=== PATIENT | male | born 1930 | race Caucasian/White ===

== ENCOUNTER 2016-10-04 08:12 | Inpatient (IN) | payer MEDICARE ==
[~2016-10-04] VITALS: Ht 177.8 cm; Wt 113.6 kg
[2016-10-04] MEDS ORDERED: WARF-20 PO (09:23)
[2016-10-04] MEDS ORDERED: WARF-58 PO (09:23)
[2016-10-04] MEDS ORDERED: CARV25TA PO (09:23)
[2016-10-04] MEDS ORDERED: GLIM4TAB PO (09:23)
[2016-10-04] MEDS ORDERED: NOVO7030P2 SQ (09:23)
[2016-10-04] MEDS ORDERED: TERA10CA3 PO (09:23)
[2016-10-04] MEDS ORDERED: K-TA10TA PO (09:23)
[2016-10-04] MEDS ORDERED: PRAV80TA2 PO (09:23)
[2016-10-04] MEDS ORDERED: LISI40TA PO (09:23)
[2016-10-04] MEDS ORDERED: AMLO10TA2 PO (09:23)
[2016-10-20] MEDS ORDERED: SODIUM CHLORID 0.9% 500 ML IV PRN (08:30)
[2016-10-20] MEDS ORDERED: ROPIVACAINE PERI-ARTICULAR INJECTION. P-ARTICULR SCH ×5 (08:30)
[2016-10-20] MEDS ORDERED: POVIDONE IODINE 5% (ANTISEPSIS KIT) 4 APPLICATIONS EACH NARE PRN (08:30)
[2016-10-20] MEDS ORDERED: TRANEXAMIC ACID INJ 1,125 MG in SODIUM CHLORIDE 0.9% INJ 100 ML IV SCH ×4 (08:30)
[2016-10-20] MEDS ORDERED: METOPROLOL TARTRATE 25 MG TAB PO PRN (08:30)
[2016-10-20] MEDS ORDERED: ceFAZolin 1,000 MG/NS 100 ML IV SCH ×2 (08:30)
[2016-10-20] MEDS ORDERED: LACTATED RINGER'S 1000 ML IV PRN (08:30)
[2016-10-20] MEDS ORDERED: CHLORHEXIDINE GLUCONATE 2 % 1 PACK (2 CLOTHS) TOPICAL PRN (08:30)
[2016-10-20] MEDS ORDERED: INSULIN HUMAN REGULAR 1,000 UNITS/10 ML VIAL SQ PRN (08:30)
[2016-10-20] MEDS ORDERED: ceFAZolin 2 GM PREMIX 50 ML IV SCH (08:30)
[2016-10-20] MEDS ORDERED: VANCOMYCIN 1000 MG/NS 250 ML (for <70 kg) IV SCH ×2 (08:30)
[2016-10-20] MEDS ORDERED: POVIDONE IODINE 7.5% SCRUB 118 ML BOTTLE TOPICAL SCH (08:30)
[2016-10-20 08:31] LABS: APTT (PATIENT) 28.2 SEC (24.3-30.1); INTERNATIONAL NORMALIZED RATIO 1.1 RATIO; PROTHROMBIN TIME - PATIENT 11.8 SEC (9.8-11.6)
[2016-10-20] MEDS ORDERED: ENOX40P SQ (08:48)
[2016-10-20 08:54] VITALS: BP 178/88; PULSE 57; RESP 18; TEMP 97.3; O2SAT 99
[2016-10-20 09:09] LABS: AUTOMATED NEUTROPHIL # 2.9 TH/MM3 (1.8-7.7); BASOPHIL % 0.7 % (0.0-2.0); EOSINOPHIL # 0.1 TH/MM3 (0-0.4); EOSINOPHIL % 1.6 % (0.0-4.0); HEMATOCRIT 47.7 % (39.0-51.0); LYMPH % 21.2 % (9.0-44.0); LYMPHOCYTE # 0.9 TH/MM3 (1.0-4.8); MEAN CELL VOLUME 96.3 FL (80.0-100.0); MEAN CORPUSCULAR HEMOGLOBIN 32.4 PG (27.0-34.0); MEAN CORPUSCULAR HGB CONC 33.6 % (32.0-36.0); NEUT % 66.5 % (16.0-70.0); PLATELET COUNT 91 TH/MM3 (150-450); RED BLOOD COUNT 4.96 MIL/MM3 (4.50-5.90); WHITE BLOOD COUNT 4.4 TH/MM3 (4.0-11.0)
[2016-10-20 09:12] LABS: HEMO FLAGS AUTO DIFF
[2016-10-20 09:52] LABS: PLATELET ESTIMATE SMEAR LOW (NORMAL); PLATELET MORPHOLOGY NORMAL (NORMAL); SCAN/DIFF AUTO DIFF CONFIRMED
[2016-10-20] MEDS ORDERED: ACETAMINOPHEN 1000 MG/100 ML VIAL IV ONE (10:55)
[2016-10-20] MEDS ORDERED: PROPOFOL 200 MG/20 ML AMP IV ONE (12:00)
[2016-10-20] MEDS ORDERED: ONDANSETRON HCL 4 MG/2 ML VIAL IV PUSH ONE (12:00)
[2016-10-20] MEDS ORDERED: LACTATED RINGER'S 1000 ML INJ 1,000 ML IV ONE (12:00)
[2016-10-20] MEDS ORDERED: NEOSTIGMINE 3 MG/3 ML SYR IV ONE (12:00)
[2016-10-20] MEDS ORDERED: ePHEDrine/NS 25 MG/5 ML SYR IV ONE (12:00)
[2016-10-20] MEDS ORDERED: GENTAMICIN SULFATE 80 MG/2 ML VIAL IRRIGATION ONE (12:02)
[2016-10-20] MEDS ORDERED: DEXTROSE 50% IN WATER 50 ML VIAL(D50) IV PUSH PRN (14:15)
[2016-10-20] MEDS ORDERED: ONDANSETRON HCL 4 MG/2 ML VIAL IVP PRN (14:15)
[2016-10-20] MEDS ORDERED: TRANEXAMIC ACID INJ 0 MG in SODIUM CHLORIDE 0.9% INJ 100 ML IV SCH (14:15)
[2016-10-20] MEDS ORDERED: NALOXONE HCL 0.4 MG/ML AMP IV PRN (14:15)
[2016-10-20] MEDS ORDERED: TEMAZEPAM 15 MG CAP PO PRN (14:15)
[2016-10-20] MEDS ORDERED: MORPHINE SULFATE 30 MG/30 ML PCA IV SCH (14:15)
[2016-10-20] MEDS ORDERED: GLUCAGON 1 MG/ML VIAL OTHER PRN (14:15)
[2016-10-20] MEDS ORDERED: SODIUM CHLORIDE 0.9% FLUSH 5 ML FLUSH IVF PRN (14:15)
[2016-10-20] MEDS ORDERED: ACETAMINOPHEN/HYDROcodone 325 MG/5 MG TAB PO PRN (14:15)
[2016-10-20] MEDS ORDERED: diphenhydrAMINE HCL 50 MG/ML VIAL IV PRN (14:15)
[2016-10-20] MEDS ORDERED: Post-op Orders (for Pharmacy) MISC XX ONE (14:15)
[2016-10-20] MEDS ORDERED: HYDR-3516 PO (14:26)
--- NOTE | 2016-10-20 14:28 | HHI.FF ---
Face to Face Verification Diagnosis: (1) S/P total hip arthroplasty Physical Therapy Gait training Hip: Total hip, Protocol: Left, Posterior hip precautions Left LE Weight Bearing: WB as tolerated Nursing Nursing: Karen teaching, Dressing changes Dressing Changes: Coverderm/Primapore I have seen patient Sanjay Pineda on 10/20/16. My clinical findings support the need for the requested home health care services because: Deconditioned w/ increased weakness Limited ability to care for self High risk of falls I certify that my clinical findings support that this patient is homebound because: Post-op weakness Unable to use public transportation Larry Goncalves MD October 20, 2016 14:28
[2016-10-20] MEDS ORDERED: MISC-163 (14:29)
[2016-10-20] MEDS ORDERED: WALKER WHEELS/F1 MIS (14:29)
[2016-10-20] MEDS ORDERED: DO NOT ADM ANY ANTICOAGULANT DRUGS PRN (14:40)
[2016-10-20] MEDS ORDERED: fentaNYL CITRATE 250 MCG/5 ML AMP ONE (14:43)
[2016-10-20] MEDS: SODIUM CHLOR 0.9% 1000 ML INJ 1,000 ML IV SCH ×2 (15:00→21:12)
--- NOTE | 2016-10-20 15:51 | RADRPT ---
EXAM DATE/TIME: 10/20/2016 14:50 [facility] COMPARISON: CHEST PA & LAT, October 04, 2016, 9:27. INDICATIONS : Status post op left total arthroplasty. MEDICAL HISTORY : None. SURGICAL HISTORY : None. ENCOUNTER: Subsequent ACUITY: 1 day PAIN SCORE: Non-responsive. LOCATION: Left Hip FINDINGS: The patient is post left hip arthroplasty. Orthopedic hardware is in excellent position. There is no evidence of complication. CONCLUSION: 1. Orthopedic hardware in excellent position. Néstor Romero MD on October 20, 2016 at 15:49 Board Certified Radiologist. This report was verified electronically.
[2016-10-20] MEDS: INSULIN NovoLIN REGULAR SUPPLEMENTAL SCALE SQ SCH ×2 (16:00→21:12)
[2016-10-20] MEDS ORDERED: ACETAMINOPHEN 1000 MG/100 ML VIAL IV SCH (16:00)
[2016-10-20] MEDS ORDERED: WARFARIN SOD 5 MG TAB PO SCH (16:00)
[2016-10-20 16:40] VITALS: BP 152/68; PULSE 55; RESP 17; TEMP 97.6; O2SAT 93
[2016-10-20] MEDS: ceFAZolin 2 GM PREMIX 50 ML IV SCH ×2 (17:36→23:48)
--- NOTE | 2016-10-20 18:07 | PD.CONS ---
HPI Service [facility] Hospitalists Consult Requested By Primary Care Physician Stefano Parrish MD Diagnoses: History of Present Illness Pt is 86 yo with hx cad, cva, dm ,ckd 4 admitted for elective left noe. Pt seen post operatively in room and he looks great . Sitting in chair eating dinner. present. no complaints. no respiratory distress or apparent nausea. He wants to try hhc/pt on d/c Review of Systems Other hip pain Past Family Social History Past Medical History cad, s/p cabg x 3 cva. hx dysphagia. dvt/pe htn dm 2 ckd 4 bph oa hip chronic thrombocytopenia Reported Medications Novolin 70-30 Inj (Insulin Human Isoph/Insulin Regular) 1,000 Unit/10 Ml Vial 20 Units SQ BID Glimepiride 4 Mg Tab 4 Mg PO BID Take with breakfast or first main meal Warfarin 4 Mg Tab 4 Mg PO M,,TH,FR,SAT Warfarin 3 Mg Tab 3 Mg PO SMALLS, W K-Tab (Potassium Chloride) 10 Meq Tab 20 Meq PO BID Pravastatin 80 Mg Tab 80 Mg PO DAILY Terazosin (Terazosin HCl) 10 Mg Cap 10 Mg PO DAILY Lisinopril 40 Mg Tab 40 Mg PO DAILY Amlodipine (Amlodipine Besylate) 10 Mg Tab 10 Mg PO DAILY Carvedilol 25 Mg Tab 50 Mg PO DAILY Allergies: Coded Allergies: No Known Allergies (Verified , 10/04/16) Family History nc Social History 2-3ppd x 20 yrs. quit Physical Exam Vital Signs in chair eating. nad oriented heart reg lung cta abd/ s/nt ext no edema gomez Vital Signs Date Time Temp Pulse Resp B/P Pulse Ox O2 Delivery O2 Flow Rate FiO2 10/20/16 15:45 98.0 50 16 174/77 94 Nasal Cannula 2 10/20/16 15:30 50 16 168/79 98 Nasal Cannula 2 10/20/16 15:21 16 10/20/16 15:15 50 16 94 Nasal Cannula 2 10/20/16 15:00 51 16 179/78 95 Nasal Cannula 2 10/20/16 14:45 56 16 92 Nasal Cannula 2 10/20/16 14:40 98.0 58 16 168/73 92 Nasal Cannula 2 10/20/16 08:54 97.3 57 18 178/88 99 Laboratory Laboratory Tests Test 10/20/16 10/20/16 07:55 08:38 Prothrombin Time 11.8 Prothromb Time International 1.1 Ratio Activated Partial 28.2 Thromboplast Time Blood Type O POSITIVE O POSITIVE Antibody Screen NEGATIVE Crossmatch Leukocyte-Reduced Red Blood Cells Blood Bank Comment White Blood Count 4.4 Red Blood Count 4.96 Hemoglobin 16.1 Hematocrit 47.7 Mean Corpuscular Volume 96.3 Mean Corpuscular Hemoglobin 32.4 Mean Corpuscular Hemoglobin 33.6 Concent Red Cell Distribution Width 14.0 Platelet Count 91 Mean Platelet Volume 9.1 Neutrophils (%) (Auto) 66.5 Lymphocytes (%) (Auto) 21.2 Monocytes (%) (Auto) 10.0 Eosinophils (%) (Auto) 1.6 Basophils (%) (Auto) 0.7 Neutrophils # (Auto) 2.9 Lymphocytes # (Auto) 0.9 Monocytes # (Auto) 0.4 Eosinophils # (Auto) 0.1 Basophils # (Auto) 0.0 CBC Comment AUTO DIFF Differential Comment AUTO DIFF CONFIRMED Platelet Estimate LOW Platelet Morphology Comment NORMAL Result Diagram: 10/20/16 0838 Assessment and Plan Problem List: (1) S/P total hip arthroplasty Status: Acute Plan: admitted for left noe stable post operatively lovenox bridge low dose ordered and bridge to coumadin. inc spirometer d/c gomez in AM PT daily plan for hhc/pt pain control ordered. (2) DM (diabetes mellitus) Status: Chronic Plan: ssi and oha resumed add back long acting insulin as tolerated. (3) CAD (coronary artery disease) Status: Chronic Plan: cont home meds (4) CVA (cerebral vascular accident) Status: Resolved (5) HTN (hypertension) Status: Chronic Plan: home meds (6) CKD stage 4 due to type 2 diabetes mellitus Status: Chronic (7) BPH (benign prostatic hyperplasia) Status: Chronic Plan: cont home meds (8) Personal history of DVT (deep vein thrombosis) Status: Resolved Plan: cont coumadin. lovenox (9) Hx pulmonary embolism Status: Resolved Plan: coumadin. lovenox Óscar Maki MD October 20, 2016 18:07
[2016-10-20 20:00] VITALS: BP 172/76; PULSE 57; RESP 17; TEMP 97.4; O2SAT 95
[2016-10-20 20:15] VITALS: O2SAT 95
[2016-10-20] MEDS: POTASSIUM CHLORIDE 10 MEQ CONTROLLED RELEASE TAB PO SCH (21:00)
[2016-10-20] MEDS: GLIMEPIRIDE 4 MG TAB PO SCH (21:00)
[2016-10-20] MEDS: KETOROLAC TROMETHAMINE 30 MG/ML (IVP) VIAL IVP SCH (21:01)
[2016-10-20] MEDS: SODIUM CHLORIDE 0.9% FLUSH 5 ML FLUSH IVF SCH (21:01)
[2016-10-20] MEDS: TERAZOSIN HCL 5 MG CAP PO SCH (22:29)
[2016-10-20] MEDS: PCA - TOTAL MG MORPHINE DELIVERED PER SHIFT SCH (22:31)
[2016-10-20] MEDS: ACETAMINOPHEN 1000 MG/100 ML VIAL IV SCH (23:48)
[2016-10-21 00:25] VITALS: BP 167/72; PULSE 64; RESP 18; TEMP 97.3; O2SAT 92
[2016-10-21] MEDS ORDERED: VANCOMYCIN INJ 1 GM in SODIUM CHLOR 0.9% 250 ML INJ 250 ML IV SCH (03:00)
[2016-10-21] MEDS ORDERED: VANCOMYCIN 1,000 MG/NS 250 ML IV ONE ×2 (03:00)
[2016-10-21 04:08] VITALS: BP 140/63; PULSE 61; RESP 18; TEMP 96.3; O2SAT 92
[2016-10-21 06:08] LABS: INTERNATIONAL NORMALIZED RATIO 1.1 RATIO; PROTHROMBIN TIME - PATIENT 12.5 SEC (9.8-11.6)
[2016-10-21] MEDS: SODIUM CHLOR 0.9% 1000 ML INJ 1,000 ML IV SCH ×3 (06:08→22:08)
[2016-10-21 06:10] LABS: HEMATOCRIT 39.6 % (39.0-51.0)
[2016-10-21] MEDS: ceFAZolin 2 GM PREMIX 50 ML IV SCH (06:12)
[2016-10-21] MEDS: KETOROLAC TROMETHAMINE 30 MG/ML (IVP) VIAL IVP SCH ×3 (06:12→20:51)
[2016-10-21] MEDS: PCA - TOTAL MG MORPHINE DELIVERED PER SHIFT SCH ×3 (06:12→22:00)
[2016-10-21 06:21] LABS: REVIEW FLAG FINAL
[2016-10-21] MEDS: INSULIN NovoLIN REGULAR SUPPLEMENTAL SCALE SQ SCH ×4 (06:21→20:50)
--- NOTE | 2016-10-21 06:22 | MP ---
cc: KASIE GONCALVES DATE OF SURGERY 10/20/2016 PREOPERATIVE DIAGNOSES 1. Osteoarthritis left hip. 2. BMI over 35. POSTOPERATIVE DIAGNOSES 1. Osteoarthritis left hip. 2. BMI over 35. OPERATIVE PROCEDURE Total hip replacement arthroplasty left hip through a posterior approach. IMPLANTS USED 1. A 58-mm Cary cup with three dome screws. 2. 36-mm flat liner. 3. An 18-mm Taperloc standard offset stem. 4. A 36-mm by standard length ceramic head. SURGEON Dr. Goncalves ANESTHESIA General. TECHNIQUE After induction of general anesthesia, the patient was put in left lateral position, supported with Biomet hip positioners. An axillary roll was placed. The well leg was properly protected, upper extremities properly positioned. The left hip and left lower extremity were thoroughly prepped with alcohol and ChloraPrep and draped in routine fashion using double Ioban drapes. A standard lateral incision was made centered on the greater trochanter, deepened through subcutaneous tissue and fascia. The fibers of the gluteus sofía were , the trochanteric bursa dissected and self-retaining Charnley retractors placed. The hip was internally rotated. The gluteus medius was retracted anteriorly and the short external rotators were identified, tagged and cut. The capsule was cut in an inverted L-shaped fashion with the vertical limb of the L along the intertrochanteric line. There was a fair amount of bleeding which was controlled by cautery. Gluteus medius was reflected from the bone superior to the acetabulum and a Steinmann pin introduced vertical to the floor of the operating room and bent at 90 degrees to measure length and offset. The hip was dislocated followed by femoral neck osteotomy at the predetermined location by templating. The acetabulum was exposed after excision of labrum and some limited anterior and inferior capsular resection. The acetabular confines were examined and then sequential reaming was carried out to 58 mm followed by introduction of a 58-mm cup in about 40 degrees of abduction and about 20 degrees of anteversion. Three dome screws were placed. A flat polyethylene liner was impacted in place. The femur was now prepared following routine technique of using a cookie cutter, canal finder and broaches to 17-mm broach, followed by use of a calcar reamer and trial reduction with a -3 head. There was good stability but there was significant pistoning on the shuck test. Length was the same as before the dislocation and offset was lost by about 2-3 mm. The hip was dislocated. I tried an 18-mm broach which went in nicely and therefore an 18-mm Taperloc stem with a standard offset was impacted in place in about 15-20 degrees of anteversion. A standard head was placed over it, ceramic. The stem also was about 3-mm shy of going in all the way. The hip was reduced with excellent stability. It should be mentioned that I did do a trial reduction with a standard head prior to placing the ceramic head. Final position, alignment and stability are all good. The short external rotators and capsule were reattached to the posterior margin of the greater trochanter with #2 FiberWire placed through drill holes in the trochanter. The fascia was closed with #2 Quill, the subcutaneous tissue with 2-0 Vicryl and the skin with subcuticular 3-0 Quill and Steri-Strips. Dressings applied with Xeroform, 4x4s, ABD and Medipore tape. The patient was transferred to the recovery room in satisfactory condition with an abduction pillow on. Estimated blood loss was 500 mL. MD JOAQUIM Vo/MARBELLA /2:33 PM /6:10 AM
[2016-10-21 06:37] LABS: BICARBONATE 28.3 MEQ/L (21.0-32.0); POTASSIUM 4.1 MEQ/L (3.5-5.1)
[2016-10-21 08:00] VITALS: BP 167/72; PULSE 57; RESP 17; TEMP 97.7; O2SAT 92
[2016-10-21] MEDS ORDERED: TERAZOSIN HCL 5 MG CAP PO SCH (09:00)
[2016-10-21] MEDS: CARVEDILOL 12.5 MG TAB PO SCH (09:00)
[2016-10-21] MEDS: SODIUM CHLORIDE 0.9% FLUSH 5 ML FLUSH IVF SCH ×2 (09:00→20:51)
[2016-10-21] MEDS: POTASSIUM CHLORIDE 10 MEQ CONTROLLED RELEASE TAB PO SCH ×2 (09:53→20:51)
[2016-10-21] MEDS: GLIMEPIRIDE 4 MG TAB PO SCH ×2 (09:53→20:50)
[2016-10-21] MEDS: PRAVASTATIN SOD 80 MG TAB PO SCH (09:54)
[2016-10-21] MEDS: LISINOPRIL 20 MG TAB PO SCH (09:54)
--- NOTE | 2016-10-21 11:55 | PD.ORT.PN ---
Subjective Post Op Day #: 1 Subjective Remarks 'Looks like we made it' Objective Vitals Vital Signs Date Time Temp Pulse Resp B/P Pulse Ox O2 Delivery O2 Flow Rate FiO2 10/21/16 08:00 97.7 57 17 167/72 92 10/21/16 06:12 18 10/21/16 04:08 96.3 61 18 140/63 92 10/21/16 00:25 97.3 64 18 167/72 92 10/20/16 22:31 18 10/20/16 20:15 95 Nasal Cannula 2.00 10/20/16 20:00 97.4 57 17 172/76 95 10/20/16 16:40 97.6 55 17 152/68 93 10/20/16 15:45 98.0 50 16 174/77 94 Nasal Cannula 2 10/20/16 15:30 50 16 168/79 98 Nasal Cannula 2 10/20/16 15:21 16 10/20/16 15:15 50 16 94 Nasal Cannula 2 10/20/16 15:00 51 16 179/78 95 Nasal Cannula 2 10/20/16 14:45 56 16 92 Nasal Cannula 2 10/20/16 14:40 98.0 58 16 168/73 92 Nasal Cannula 2 I/O 10/20/16 10/20/16 10/20/16 10/21/16 10/21/16 10/21/16 07:00 15:00 23:00 07:00 15:00 23:00 Intake Total 1500 ml 761 ml 1122 ml Output Total 600 ml 400 ml 375 ml Balance 900 ml 361 ml 747 ml Intake Oral 240 ml 240 ml IV Total 521 ml 882 ml Other 1500 ml Output Urine Total 400 ml 375 ml Estimated Blood Loss 300 ml Other 300 ml # Bowel Movements 0 0 Result Diagram: 10/21/16 0528 10/21/16 0528 Other Results Laboratory Tests Test 10/21/16 05:28 Prothrombin Time 12.5 SEC (9.8-11.6) Prothromb Time International 1.1 RATIO Ratio Imaging Last 72 hours Impressions Hip X-Ray 10/20/16 0000 Signed Impressions: Service Date/Time: Thursday, October 20, 2016 14:50 - CONCLUSION: 1. Orthopedic hardware in excellent position. Néstor Romero MD Objective Remarks A,A,and O Sitting OOB., comfortable. Moves toes well Assessment & Plan Ortho Post Op Day #: 1 Problem List: Assessment and Plan POD # 1 BLADIMIR left Doing well Coumadin/ lovenox bridge. DC tuesday with C Larry Goncalves MD October 21, 2016 11:55
[2016-10-21 12:00] VITALS: BP 177/79; PULSE 66; RESP 18; TEMP 97.9; O2SAT 95
[2016-10-21] MEDS: ACETAMINOPHEN 1000 MG/100 ML VIAL IV SCH (12:46)
[2016-10-21] MEDS: ENOXAPARIN SODIUM 30 MG/0.3 ML SYRINGE SQ SCH (13:42)
[2016-10-21] MEDS ORDERED: cloNIDine HCL 0.1 MG TAB PO PRN (14:30)
[2016-10-21 16:00] VITALS: BP 144/64; PULSE 72; RESP 18; TEMP 98.7; O2SAT 92
[2016-10-21] MEDS: WARFARIN SOD 5 MG TAB PO SCH (16:31)
[2016-10-21 20:00] VITALS: BP 163/74; PULSE 77; RESP 17; TEMP 97.7; O2SAT 94
[2016-10-21] MEDS: DOCUSATE SODIUM 100 MG CAP PO SCH (20:48)
[2016-10-21] MEDS: TERAZOSIN HCL 5 MG CAP PO SCH (20:50)
[2016-10-22] VITALS: BP 175/79; PULSE 62; RESP 17; TEMP 97.9; O2SAT 94
[2016-10-22] MEDS: ENOXAPARIN SODIUM 30 MG/0.3 ML SYRINGE SQ SCH ×2 (01:38→11:02)
[2016-10-22 04:00] VITALS: BP 179/81; PULSE 64; RESP 17; TEMP 98.7; O2SAT 93
[2016-10-22] MEDS: KETOROLAC TROMETHAMINE 30 MG/ML (IVP) VIAL IVP SCH ×3 (04:48→22:15)
[2016-10-22] MEDS: PCA - TOTAL MG MORPHINE DELIVERED PER SHIFT SCH ×3 (06:00→22:00)
[2016-10-22] MEDS: SODIUM CHLOR 0.9% 1000 ML INJ 1,000 ML IV SCH ×3 (06:08→22:08)
[2016-10-22 06:57] LABS: INTERNATIONAL NORMALIZED RATIO 1.2 RATIO; PROTHROMBIN TIME - PATIENT 13.4 SEC (9.8-11.6)
[2016-10-22] MEDS: INSULIN NovoLIN REGULAR SUPPLEMENTAL SCALE SQ SCH ×4 (07:00→22:15)
[2016-10-22 07:05] LABS: AUTOMATED NEUTROPHIL # 3.9 TH/MM3 (1.8-7.7); BASOPHIL % 0.4 % (0.0-2.0); EOSINOPHIL # 0.1 TH/MM3 (0-0.4); EOSINOPHIL % 1.5 % (0.0-4.0); HEMATOCRIT 36.9 % (39.0-51.0); LYMPH % 14.3 % (9.0-44.0); LYMPHOCYTE # 0.8 TH/MM3 (1.0-4.8); MEAN CELL VOLUME 97.2 FL (80.0-100.0); MEAN CORPUSCULAR HEMOGLOBIN 31.5 PG (27.0-34.0); MEAN CORPUSCULAR HGB CONC 32.4 % (32.0-36.0); MONO % 10.7 % (0.0-8.0); NEUT % 73.1 % (16.0-70.0); PLATELET COUNT 75 TH/MM3 (150-450); WHITE BLOOD COUNT 5.3 TH/MM3 (4.0-11.0)
[2016-10-22 07:26] LABS: HEMO FLAGS AUTO DIFF
--- NOTE | 2016-10-22 07:49 | PD.ORT.PN ---
Subjective Post Op Day #: 2 Pain Scale: not much Subjective Remarks 'they are having problems with my B,P,' Distance Walked in room Objective Vitals Vital Signs Date Time Temp Pulse Resp B/P Pulse Ox O2 Delivery O2 Flow Rate FiO2 10/22/16 04:00 98.7 64 17 179/81 93 10/22/16 00:00 97.9 62 17 175/79 94 10/21/16 20:00 97.7 77 17 163/74 94 10/21/16 16:00 98.7 72 18 144/64 92 10/21/16 14:00 16 10/21/16 13:16 16 10/21/16 12:00 97.9 66 18 177/79 95 10/21/16 08:00 97.7 57 17 167/72 92 I/O 10/21/16 10/21/16 10/21/16 10/22/16 10/22/16 10/22/16 07:00 15:00 23:00 07:00 15:00 23:00 Intake Total 1122 ml 1790 ml 120 ml Output Total 375 ml 450 ml 550 ml Balance 747 ml 1340 ml -430 ml Intake Oral 240 ml 840 ml 120 ml IV Total 882 ml 950 ml Output Urine Total 375 ml 450 ml 550 ml # Bowel Movements 0 0 0 Result Diagram: 10/22/16 0617 10/21/16 0528 Other Results Laboratory Tests Test 10/22/16 06:17 Prothrombin Time 13.4 SEC (9.8-11.6) Prothromb Time International 1.2 RATIO Ratio Imaging Last 72 hours Impressions Hip X-Ray 10/20/16 0000 Signed Impressions: Service Date/Time: Thursday, October 20, 2016 14:50 - CONCLUSION: 1. Orthopedic hardware in excellent position. Néstor Romero MD Objective Remarks A,A,and O in bed with abdn pillow comfortable. Moves toes well Dressings clean and dry Assessment & Plan Ortho Post Op Day #: 2 Problem List: Assessment and Plan POD # 2 BLADIMIR left. Platelets 15232, INR 1.2. Continue lovenox coumadin bridge Repeat CBC in am Doing well Coumadin/ lovenox bridge. DC tuesday with [facility] Larry Goncalves MD October 22, 2016 07:49
[2016-10-22 08:00] VITALS: BP 161/72; PULSE 58; RESP 18; TEMP 97.2; O2SAT 93
[2016-10-22 08:38] LABS: PLATELET ESTIMATE SMEAR LOW (NORMAL); PLATELET MORPHOLOGY NORMAL (NORMAL); SCAN/DIFF AUTO DIFF CONFIRMED
[2016-10-22] MEDS: CARVEDILOL 12.5 MG TAB PO SCH (09:00)
[2016-10-22] MEDS: SODIUM CHLORIDE 0.9% FLUSH 5 ML FLUSH IVF SCH ×2 (09:00→22:15)
[2016-10-22] MEDS ORDERED: BISACODYL 10 MG SUPP RECTAL PRN (09:00)
[2016-10-22] MEDS ORDERED: MAGNESIUM HYDROXIDE SUSP 30 ML CUP PO PRN (09:00)
[2016-10-22] MEDS: DOCUSATE SODIUM 100 MG CAP PO SCH ×2 (09:06→22:14)
[2016-10-22] MEDS: PRAVASTATIN SOD 80 MG TAB PO SCH (09:06)
[2016-10-22] MEDS: GLIMEPIRIDE 4 MG TAB PO SCH ×2 (09:07→22:13)
[2016-10-22] MEDS: POTASSIUM CHLORIDE 10 MEQ CONTROLLED RELEASE TAB PO SCH ×2 (09:07→22:13)
[2016-10-22] MEDS: LISINOPRIL 20 MG TAB PO SCH (09:08)
--- NOTE | 2016-10-22 09:10 | HHI.PR ---
Subjective Remarks Pt reports that is pain is somewhat controlled this morning +Flatus, no BM since 10/19 BP is elevated but pt reports increased pain overnight. His HR is stable. Objective Vitals Vital Signs Date Time Temp Pulse Resp B/P Pulse Ox O2 Delivery O2 Flow Rate FiO2 10/22/16 08:00 97.2 58 18 161/72 93 10/22/16 04:00 98.7 64 17 179/81 93 10/22/16 00:00 97.9 62 17 175/79 94 10/21/16 20:00 97.7 77 17 163/74 94 10/21/16 16:00 98.7 72 18 144/64 92 10/21/16 14:00 16 10/21/16 13:16 16 10/21/16 12:00 97.9 66 18 177/79 95 10/21/16 10/21/16 10/22/16 15:00 23:00 07:00 Intake Total 1790 ml 120 ml Output Total 450 ml 550 ml Balance 1340 ml -430 ml Intake Oral 840 ml 120 ml IV Total 950 ml Output Urine Total 450 ml 550 ml # Bowel Movements 0 0 Result Diagram: 10/22/16 0617 10/21/16 0528 Other Results Laboratory Tests Test 10/21/16 10/22/16 05:28 06:17 Hemoglobin 13.4 GM/DL 12.0 GM/DL Hematocrit 39.6 % 36.9 % Prothrombin Time 12.5 SEC 13.4 SEC Prothromb Time International 1.1 RATIO 1.2 RATIO Ratio Sodium Level 143 MEQ/L Potassium Level 4.1 MEQ/L Chloride Level 111 MEQ/L Carbon Dioxide Level 28.3 MEQ/L Anion Gap 4 MEQ/L Blood Urea Nitrogen 20 MG/DL Creatinine 1.46 MG/DL Estimat Glomerular Filtration 46 ML/MIN Rate Random Glucose 103 MG/DL Calcium Level 8.9 MG/DL White Blood Count 5.3 TH/MM3 Red Blood Count 3.80 MIL/MM3 Mean Corpuscular Volume 97.2 FL Mean Corpuscular Hemoglobin 31.5 PG Mean Corpuscular Hemoglobin 32.4 % Concent Red Cell Distribution Width 14.0 % Platelet Count 75 TH/MM3 Mean Platelet Volume 9.2 FL Neutrophils (%) (Auto) 73.1 % Lymphocytes (%) (Auto) 14.3 % Monocytes (%) (Auto) 10.7 % Eosinophils (%) (Auto) 1.5 % Basophils (%) (Auto) 0.4 % Neutrophils # (Auto) 3.9 TH/MM3 Lymphocytes # (Auto) 0.8 TH/MM3 Monocytes # (Auto) 0.6 TH/MM3 Eosinophils # (Auto) 0.1 TH/MM3 Basophils # (Auto) 0.0 TH/MM3 CBC Comment AUTO DIFF Differential Comment AUTO DIFF CONFIRMED Platelet Estimate LOW Platelet Morphology Comment NORMAL Red Cell Morphology Comment NORMAL Imaging Last Impressions Hip X-Ray 10/20/16 0000 Signed Impressions: Service Date/Time: Tuesday, October 20, 2016 14:50 - CONCLUSION: 1. Orthopedic hardware in excellent position. Néstor Romero MD Objective Remarks General: NAD, AAOx3 Chest: CTA Cardiac: Regular Abd: +BS, Soft mildly distended, nontender Ext: Left hip dressing are c/d/i A/P Problem List: (1) S/P total hip arthroplasty Status: Acute Plan: - Pt was admitted for Left BLADIMIR on 10/20/[address] Goncalves - Pain control per Ortho - IS - Pt urinating without the Abbott - No BM yet, but +flatus - Pt is on Lovenox bridge low dose ordered to Coumadin. - PT daily - Pt is planned for hhc/pt - Wean off supplemental O2 - Constipation precautions. (2) DM (diabetes mellitus) Status: Chronic Plan: - NovoLog SSI and OHA resumed - Add back long acting insulin as tolerated. (3) CAD (coronary artery disease) Status: Chronic Plan: - COreg was held on 10/21 due to HR in the 50's - BP is elevated today - Cont. all home meds today - Monitor BP - PRN BP control (4) HTN (hypertension) Status: Chronic Plan: - See above. (5) CVA (cerebral vascular accident) Status: Resolved (6) CKD stage 4 due to type 2 diabetes mellitus Status: Chronic (7) BPH (benign prostatic hyperplasia) Status: Chronic Plan: - Cont home meds (8) Personal history of DVT (deep vein thrombosis) Status: Resolved Plan: - Cont Coumadin with Lovenox bridge - Monitor INR daily (9) Hx pulmonary embolism Status: Resolved Plan: - Cont. Coumadin with Lovenox bridge - Monitor INR daily Assessment and Plan Patient examined. Assessment and plan formulated with Suha Kemp PA-C. I agree with the above. I recommend daily lovenox bridge unti inr 2. cont home dose coumadin. Problem Qualifiers (1) DM (diabetes mellitus): Suha Kemp October 22, 2016 09:10 Óscar Maki MD October 22, 2016 13:54
[2016-10-22] MEDS: ACETAMINOPHEN/HYDROcodone 325 MG/5 MG TAB PO PRN ×2 (11:02→16:27)
[2016-10-22] MEDS: ACETAMINOPHEN 1000 MG/100 ML VIAL IV SCH ×2 (11:02)
[2016-10-22 12:00] VITALS: BP 150/67; PULSE 60; RESP 18; TEMP 98; O2SAT 93
[2016-10-22 16:00] VITALS: BP 152/70; PULSE 58; RESP 18; TEMP 97.2; O2SAT 100
[2016-10-22] MEDS: WARFARIN SOD 5 MG TAB PO SCH (16:27)
[2016-10-22 20:40] VITALS: BP 162/70; PULSE 68; RESP 17; TEMP 98.2; O2SAT 95
[2016-10-22] MEDS: TERAZOSIN HCL 5 MG CAP PO SCH (22:14)
[2016-10-23] MEDS: ACETAMINOPHEN 1000 MG/100 ML VIAL IV SCH
[2016-10-23 00:20] VITALS: BP 153/70; PULSE 66; RESP 17; TEMP 97.9; O2SAT 97
[2016-10-23] MEDS: ACETAMINOPHEN/HYDROcodone 325 MG/5 MG TAB PO PRN (00:23)
[2016-10-23] MEDS: ENOXAPARIN SODIUM 30 MG/0.3 ML SYRINGE SQ SCH (01:57)
[2016-10-23 05:21] LABS: AUTOMATED NEUTROPHIL # 3.5 TH/MM3 (1.8-7.7); BASOPHIL % 0.5 % (0.0-2.0); EOSINOPHIL # 0.1 TH/MM3 (0-0.4); EOSINOPHIL % 2.6 % (0.0-4.0); LYMPH % 17.7 % (9.0-44.0); LYMPHOCYTE # 0.9 TH/MM3 (1.0-4.8); MEAN CELL VOLUME 96.6 FL (80.0-100.0); MEAN CORPUSCULAR HGB CONC 33.1 % (32.0-36.0); MONO % 10.1 % (0.0-8.0); NEUT % 69.1 % (16.0-70.0); PLATELET COUNT 81 TH/MM3 (150-450); RED BLOOD COUNT 3.83 MIL/MM3 (4.50-5.90); RED CELL DISTRIBUTION WIDTH 13.9 % (11.6-17.2); WHITE BLOOD COUNT 5.1 TH/MM3 (4.0-11.0)
[2016-10-23 05:26] LABS: INTERNATIONAL NORMALIZED RATIO 1.3 RATIO; PROTHROMBIN TIME - PATIENT 14.1 SEC (9.8-11.6)
[2016-10-23 05:29] LABS: HEMO FLAGS AUTO DIFF
[2016-10-23] MEDS: PCA - TOTAL MG MORPHINE DELIVERED PER SHIFT SCH (06:00)
[2016-10-23] MEDS: SODIUM CHLOR 0.9% 1000 ML INJ 1,000 ML IV SCH (06:08)
[2016-10-23] MEDS: INSULIN NovoLIN REGULAR SUPPLEMENTAL SCALE SQ SCH ×2 (07:00→11:00)
[2016-10-23 08:00] VITALS: BP 158/73; PULSE 61; RESP 18; TEMP 97.7; O2SAT 100
[2016-10-23 08:13] LABS: PLATELET ESTIMATE SMEAR LOW (NORMAL); PLATELET MORPHOLOGY NORMAL (NORMAL); SCAN/DIFF AUTO DIFF CONFIRMED
[2016-10-23] MEDS: CARVEDILOL 12.5 MG TAB PO SCH (08:57)
[2016-10-23] MEDS: PRAVASTATIN SOD 80 MG TAB PO SCH (08:57)
[2016-10-23] MEDS: LISINOPRIL 20 MG TAB PO SCH (08:58)
[2016-10-23] MEDS: SODIUM CHLORIDE 0.9% FLUSH 5 ML FLUSH IVF SCH (08:58)
[2016-10-23] MEDS: POTASSIUM CHLORIDE 10 MEQ CONTROLLED RELEASE TAB PO SCH (08:58)
[2016-10-23] MEDS: DOCUSATE SODIUM 100 MG CAP PO SCH (08:58)
[2016-10-23] MEDS: GLIMEPIRIDE 4 MG TAB PO SCH (09:00)
[2016-10-23] MEDS ORDERED: ENOX40P SQ (11:01)
--- NOTE | 2016-10-23 11:09 | PD.ORT.PN ---
Subjective Post Op Day #: 3 Pain Scale: 5 Subjective Remarks Ready to go home' Distance Walked 40' x 2 Objective Vitals Vital Signs Date Time Temp Pulse Resp B/P Pulse Ox O2 Delivery O2 Flow Rate FiO2 10/23/16 08:55 Room Air 10/23/16 08:00 97.7 61 18 158/73 100 10/23/16 00:20 97.9 66 17 153/70 97 10/22/16 20:40 98.2 68 17 162/70 95 10/22/16 17:51 16 10/22/16 16:00 97.2 58 18 152/70 100 10/22/16 12:00 98.0 60 18 150/67 93 10/22/16 11:07 Room Air I/O 10/22/16 10/22/16 10/22/16 10/23/16 10/23/16 10/23/16 07:00 15:00 23:00 07:00 15:00 23:00 Intake Total 120 ml 1080 ml 240 ml Output Total 550 ml 425 ml Balance -430 ml 655 ml 240 ml Intake Oral 120 ml 1080 ml 240 ml Output Urine Total 550 ml 425 ml # Voids 2 2 # Bowel Movements 0 0 0 Result Diagram: 10/23/16 0501 10/21/16 0528 Other Results Laboratory Tests Test 10/23/16 05:01 Prothrombin Time 14.1 SEC (9.8-11.6) Prothromb Time International 1.3 RATIO Ratio Imaging Last 72 hours Impressions Hip X-Ray 10/20/16 0000 Signed Impressions: Service Date/Time: Thursday, October 20, 2016 14:50 - CONCLUSION: 1. Orthopedic hardware in excellent position. Néstor Romero MD Objective Remarks A,A,and O sitting OOB. Moves toes well Dressings clean and dry Assessment & Plan Ortho Post Op Day #: 3 Problem List: Assessment and Plan POD # 23THA left. Platelets 90931, INR 1.2. Continue lovenox coumadin bridge Repeat CBC in am Doing well Coumadin/ lovenox bridge. DC tuesday with [facility] INR 1.3 Rx lovenox for 3 days, staRTING TOMORROW AM Continue previous dose of coumadin at home Larry Goncalves MD October 23, 2016 11:09
--- NOTE | 2016-10-23 17:37 | MD ---
cc: KASIE HANEY ADMISSION DATE: 10/20/2016 DISCHARGE DATE: 10/23/2016 ADMISSION DIAGNOSIS: Osteoarthritis, left hip. DISCHARGE DIAGNOSIS: Osteoarthritis, left hip. ADDITIONAL DIAGNOSES: 1. History of cardiac bypass. 2. History of pulmonary embolus. 3. History of stroke. PROCEDURE PERFORMED: Total hip replacement arthroplasty, left hip. BRIEF HISTORY: This patient had a one to two year history of increasing pain in his left hip to the point that now he cannot ambulate without an assistive device and pain. X-rays revealed [id number] left hip. The patient was appropriately worked up and taken to the operating room on the day of admission when he underwent total hip replacement arthroplasty left hip. HOSPITAL COURSE: Surgery was uneventful and postoperative care was uneventful. The patient was placed both on Lovenox and Coumadin until the INR came up. The INR is now 1.3 and therefore will continue Lovenox at home 40 milligrams daily for three days and also check his INR to make sure it is at prophylaxis levels. He was also given a prescription for oxycodone 5 one to two four times a day PRN for pain #90. Home care has been arranged for physical therapy, wound care and INR monitoring. DISCHARGE CONDITION: Stable. MD JOAQUIM Vo/OMAYRA /11:13 AM /5:30 PM
== END 2016-10-23 12:20 | disposition home health service (06) | DRG 470 ==
LOC: HSDI 10-20 07:41 → N06B 10-20 16:19
PROVIDERS: ADMIT Orthopaedic Surgery; ATTEND Orthopaedic Surgery
PROC: 0SRB04A Replacement of Left Hip Joint with Ceramic on Polyethylene Synthetic Substitute, Uncemented, Open Approach (ICD-10-PCS; principal; 2016-10-20 11:12)
DX: M16.12 Unilateral primary osteoarthritis, left hip (principal); I12.9 Hypertensive chronic kidney disease with stage 1 through stage 4 chronic kidney disease, or unspecified chronic kidney disease; N18.4 Chronic kidney disease, stage 4 (severe); E11.22 Type 2 diabetes mellitus with diabetic chronic kidney disease; Z79.4 Long term (current) use of insulin; Z79.84 Long term (current) use of oral hypoglycemic drugs; D69.6 Thrombocytopenia, unspecified; I25.10 Atherosclerotic heart disease of native coronary artery without angina pectoris; Z95.1 Presence of aortocoronary bypass graft; Z86.73 Personal history of transient ischemic attack (TIA), and cerebral infarction without residual deficits; Z86.711 Personal history of pulmonary embolism; Z86.718 Personal history of other venous thrombosis and embolism; Z79.01 Long term (current) use of anticoagulants; N40.0 Benign prostatic hyperplasia without lower urinary tract symptoms; Z87.891 Personal history of nicotine dependence
CPT/HCPCS: 73502; 80048; 82948; 85014; 85018; 85025; 85610; 85730; 86850; 86900; 86901; 86920; 94150; C1776; J0131; J0171; J0690; J0735; J1580; J1650; J1885; J2270; J2405; J2710; J2795; J3010; J3370; J7030; J7050; J7120

== ENCOUNTER → 2016-10-04 | Outpatient (CLI) | payer MEDICARE ==
[~2016-10-04] MED LIST: 1-ME1LIQ OR; AMLO10TA2 PO; ATOR40TA49 PO; CARV25TA OR; CARV25TA PO; COUM1TAB PO; ENOX40P SQ; GLIM2TAB PO; GLIM4TAB PO; HYDR-2768 PO; HYDR-3516 PO; K-TA10TA PO; KLOR20TA6 PO; LISI40TA PO; MISC-163; NOVO7030P2 SQ; NOVONP2 SQ; PRAV80TA2 PO; PRIN20TA2 PO; PROS5TAB2 PO; TERA10CA3 PO; WALKER WHEELS/F1 MIS; WARF-20 PO; WARF-58 PO
[2016-10-04 09:01] LABS: AUTOMATED NEUTROPHIL # 3.4 TH/MM3 (1.8-7.7); BASOPHIL % 0.6 % (0.0-2.0); EOSINOPHIL # 0.1 TH/MM3 (0-0.4); EOSINOPHIL % 1.8 % (0.0-4.0); HEMATOCRIT 49.5 % (39.0-51.0); HEMO FLAGS DIFF FINAL; LYMPH % 23.6 % (9.0-44.0); LYMPHOCYTE # 1.3 TH/MM3 (1.0-4.8); MEAN CELL VOLUME 96.5 FL (80.0-100.0); MEAN CORPUSCULAR HEMOGLOBIN 31.7 PG (27.0-34.0); MEAN CORPUSCULAR HGB CONC 32.8 % (32.0-36.0); MONO % 10.4 % (0.0-8.0); NEUT % 63.6 % (16.0-70.0); PLATELET COUNT 100 TH/MM3 (150-450); RED BLOOD COUNT 5.13 MIL/MM3 (4.50-5.90); RED CELL DISTRIBUTION WIDTH 13.6 % (11.6-17.2); WHITE BLOOD COUNT 5.3 TH/MM3 (4.0-11.0)
[2016-10-04 09:06] LABS: BLOOD, URINE TRACE (NEG); COMMENT (UR) CULT NOT INDICATED; CULTURE IF INDICATED CULT NOT INDICATED; GLUCOSE,URINE NEG (NEG); KETONE, URINE NEG (NEG); MUCUS URINE FEW /lpf (OCC); NITRITE,URINE NEG (NEG); URINE COLOR YELLOW (YELLW/STRAW)
[2016-10-04 09:12] LABS: APTT (PATIENT) 32.2 SEC (24.3-30.1); INTERNATIONAL NORMALIZED RATIO 1.9 RATIO; PROTHROMBIN TIME - PATIENT 21.4 SEC (9.8-11.6)
[2016-10-04 09:33] LABS: ALKALINE PHOSPHATASE 74 U/L (45-117); ALT (GPT) 24 U/L (12-78); ANION GAP 3 MEQ/L (5-15); AST (GOT) 20 U/L (15-37); BICARBONATE 30.2 MEQ/L (21.0-32.0); BLOOD UREA NITROGEN 27 MG/DL (7-18); CHLORIDE 110 MEQ/L (98-107); GLOMERULAR FILTRATION RATE 38 ML/MIN (>89); GLUCOSE,FASTING 88 MG/DL (74-99); POTASSIUM 4.1 MEQ/L (3.5-5.1); SODIUM (NA) 143 MEQ/L (136-145); TOTAL BILIRUBIN ADULT 0.4 MG/DL (0.2-1.0)
--- NOTE | 2016-10-04 11:05 | RADRPT ---
EXAM DATE/TIME: 10/04/2016 09:27 [facility] COMPARISON: No previous studies available for comparison. INDICATIONS : Evaluate for pneumonia, pneumothorax, or communicable diseases. Pre op hip surgery MEDICAL HISTORY : Hypertension. SURGICAL HISTORY : CABG. ENCOUNTER: Initial ACUITY: 1 day PAIN SCORE: 0/10 LOCATION: Bilateral chest FINDINGS: Median sternotomy wires from prior surgery noted. There is mild scattered proximal scarring but no ev idence of acute air space disease, significant congestion, pleural effusion or mass. Heart is normal in size. CONCLUSION: Chronic changes and evidence of previous CABG. No evidence of acute process. Christian Resendez MD on October 04, 2016 at 11:03 Board Certified Radiologist. This report was verified electronically.
--- NOTE | 2016-10-04 16:04 | EKG ---
Date Performed: 10/04/2016 Time Performed: 08:59:34 PTAGE: 86 years EKG: SINUS BRADYCARDIA WITH FIRST DEGREE AV BLOCK LEFT ANTERIOR FASCICULAR BLOCK SEPTAL MYOCARDI AL INFARCTION, OF INDETERMINATE AGE ABNORMAL ECG COMPARED TO PRIOR ELECTROCARDIOGRAM, VA interval has increased. PREVIOUS TRACING : 12/19/2006 10.18 DOCTOR: Kermit Dean Interpretating Date/Time 10/04/2016 16:02:34
== END ==
LOC: CPRE 08:08
PROVIDERS: ATTEND Orthopaedic Surgery
DX: Z01.812 Encounter for preprocedural laboratory examination (principal); Z01.810 Encounter for preprocedural cardiovascular examination; Z01.811 Encounter for preprocedural respiratory examination; R00.1 Bradycardia, unspecified; I44.0 Atrioventricular block, first degree; I44.4 Left anterior fascicular block; R94.31 Abnormal electrocardiogram [ECG] [EKG]
CPT/HCPCS: 36415; 71020; 80053; 81001; 85025; 85610; 85730; 93005